=== PATIENT | male | born 1985 | race Caucasian/White ===

== ENCOUNTER 2019-04-22 20:18 | Emergency (ER) | payer OTHER ==
[~2019-04-22] VITALS: Ht 177.8 cm; Wt 79.5 kg
[2019-04-22 20:39] VITALS: BP 164/84
[2019-04-22] MEDS ORDERED: IV NORMAL SALINE 1,000ML 1,000 ML IV ONE (21:00)
--- NOTE | 2019-04-22 21:15 | PHYS DOC ---
Past History Past Medical History: No Pertinent History Alcohol Use: None Adult General Chief Complaint Chief Complaint: COUGH HPI HPI 33-year-old male presents with his 12-year-old daughter. They both present with following symptoms: cough, shortness of breath, and recent travel history. The patient came back from [facility] on April 01. He was at the [employer] tourist facility with multiple international people including people from [place]. He has not been notified of any known sick person as result of going to that facility. The patient's dry cough started about 2 weeks ago. It is been getting worse the last 3-4 days. He does not have a thermometer at home and has not measured a fever. He came in today because the cough seems to be getting worse and he is more fatigued with exertion. Review of Systems Review of Systems Constitutional: Denies fever or chills [] Eyes: Denies change in visual acuity, redness, or eye pain [] HENT: Denies nasal congestion or sore throat [] Respiratory: Cough with shortness of breath [] Cardiovascular: No additional information not addressed in HPI [] GI: Denies abdominal pain, nausea, vomiting, bloody stools or diarrhea [] : Denies dysuria or hematuria [] Musculoskeletal: Denies back pain or joint pain [] Integument: Denies rash or skin lesions [] Neurologic: Denies headache, focal weakness or sensory changes [] Endocrine: Denies polyuria or polydipsia [] All other systems were reviewed and found to be within normal limits, except as documented in this note. Current Medications Current Medications Current Medications Medications (Trade) Dose Ordered Sig/Ronaldo Start Time Stop Time Status Last Admin Dose Admin Sodium Chloride 1,000 ml @ 1,000 mls/hr 1X ONCE 04/22/19 21:00 04/22/19 21:59 04/22/19 21:00 1,000 MLS/HR Allergies Allergies Allergies Coded Allergies Type Severity Reaction Last Updated Verified meperidine Allergy Intermediate 04/22/19 Yes Physical Exam Physical Exam Constitutional: Well developed, well nourished, no acute distress, non-toxic appearance. [] HENT: Normocephalic, atraumatic, bilateral external ears normal, oropharynx moist, no oral exudates, nose normal. [] Eyes: PERRLA, EOMI, conjunctiva normal, no discharge. [] Neck: Normal range of motion, no tenderness, supple, no stridor. [] Cardiovascular: Heart rate regular rhythm, no murmur [] Lungs & Thorax: Bilateral breath sounds clear to auscultation [] Abdomen: Bowel sounds normal, soft, no tenderness, no masses, no pulsatile masses. [] Skin: Warm, dry, no erythema, no rash. [] Back: No tenderness, no CVA tenderness. [] Extremities: No tenderness, no cyanosis, no clubbing, ROM intact, no edema. [] Neurologic: Alert and oriented X 3, normal motor function, normal sensory function, no focal deficits noted. [] Psychologic: Affect normal, judgement normal, mood normal. [] Current Patient Data Vital Signs Vital Signs Date Time Temp Pulse Resp B/P (MAP) Pulse Ox O2 Delivery O2 Flow Rate FiO2 04/22/19 20:39 98.7 114 18 164/84 (110) 99 Room Air EKG EKG [] Radiology/Procedures Radiology/Procedures [] Impressions: Examination: CHEST AP ONLY History: Shortness of breath Comparison: None. Findings: AP portable upright frontal view of the chest was obtained. The cardiomediastinal silhouette is normal. Lungs are clear. There is no pneumothorax. No pleural effusion is appreciated. No acute bone abnormality. IMPRESSION: No acute cardiopulmonary process. Electronically signed by: Rashid Jerome MD (04/22/2019 9:36 PM) [facility] DICTATED AND SIGNED BY: RASHID JEROME MD DATE: 04/22/192135 CC: MARK PONCE DO; PCP,NO ~ Course & Med Decision Making Course & Med Decision Making Pertinent Labs and Imaging studies reviewed. (See chart for details) The patient's labs are unremarkable. His influenza was negative. His chest x-ray is negative for acute findings. I did confer with the [place] Department of health to make sure that this patient did not meet criteria for COVID 19 testing and he does not. This is likely another viral URI with cough. I've advised supportive care. The patient is stable for discharge at this time. [] Dragon Disclaimer Dragon Disclaimer This electronic medical record was generated, in whole or in part, using a voice recognition dictation system. Departure Departure: Impression: Primary Impression: Viral URI with cough Disposition: HOME, SELF-CARE Condition: STABLE Referrals: PCPMIAH (PCP) Patient Instructions: Upper Respiratory Infection, Adult, [id number] MARK PONCE DO Apr 22, 2019 21:15
--- NOTE | 2019-04-22 21:39 | RAD ---
Examination: CHEST AP ONLY History: Shortness of breath Comparison: None. Findings: AP portable upright frontal view of the chest was obtained. The cardiomediastinal silhouette is normal. Lungs are clear. There is no pneumothorax. No pleural effusion is appreciated. No acute bone abnormality. IMPRESSION: No acute cardiopulmonary process. Electronically signed by: Rashid Saucedo MD (04/22/2019 9:36 PM) [facility]
[2019-04-22 21:47] LABS: BASO # 0.1 x10^3/uL (0.0-0.2); BASO % 1 % (0-3); EOS # 0.1 x10^3/uL (0.0-0.7); EOS % 2 % (0-3); HEMATOCRIT 45.5 % (39.0-53.0); HEMOGLOBIN 15.6 g/dL (13.0-17.5); LYMPH # 2.6 x10^3/uL (1.0-4.8); LYMPH % 38 % (24-48); MEAN CORPUSCULAR HEMOGLOBIN 30 pg (25-35); MEAN CORPUSCULAR HGB CONC 34 g/dL (31-37); MEAN CORPUSCULAR VOLUME 88 fL (79-100); MONO # 0.6 x10^3/uL (0.0-1.1); MONO % 9 % (0-9); NEUT # 3.5 x10^3uL (1.8-7.7); NEUT % 51 % (31-73); PLATELET COUNT 217 x10^3/uL (140-400); RED BLOOD COUNT 5.16 x10^6/uL (4.30-5.70); RED CELL DISTRIBUTION WIDTH 13.4 % (11.5-14.5); WHITE BLOOD COUNT 6.9 x10^3/uL (4.0-11.0)
[2019-04-22 21:48] LABS: INFLUENZA A PATIENT NEGATIVE (NEGATIVE); INFLUENZA B PATIENT NEGATIVE (NEGATIVE)
[2019-04-22 21:56] LABS: CALCIUM 8.5 mg/dL (8.5-10.1); CREATININE 1.1 mg/dL (0.7-1.3); GFR 76.2; POTASSIUM 4.1 mmol/L (3.5-5.1)
[2019-04-22 22:02] LABS: ALBUMIN/GLOBULIN RATIO 1.2 (1.0-1.7); TOTAL BILIRUBIN 0.3 mg/dL (0.2-1.0); TOTAL PROTEIN 7.3 g/dL (6.4-8.2)
== END 2019-04-22 22:34 | disposition home or self-care (01) ==
LOC: ER 20:18
DX: J06.9 Acute upper respiratory infection, unspecified (principal); B97.89 Other viral agents as the cause of diseases classified elsewhere; Z88.8 Allergy status to other drugs, medicaments and biological substances
CPT/HCPCS: 36415; 71045; 80053; 85025; 87804; 99284-25; J7030

== ENCOUNTER 2019-07-12 13:12 | Emergency (ER) | payer OTHER ==
[~2019-07-12] VITALS: Ht 177.8 cm; Wt 100.0 kg
[2019-07-12 13:17] VITALS: BP 137/77
[2019-07-12] MEDS: IOHEXOL 300 MG/ML 75 ML VIAL. IV ONE (14:06)
[2019-07-12 14:15] LABS: BASO % 1 % (0-3); EOS % 0 % (0-3); HEMATOCRIT 42.6 % (39.0-53.0); HEMOGLOBIN 14.8 g/dL (13.0-17.5); LYMPH % 13 % (24-48); MEAN CORPUSCULAR HEMOGLOBIN 30 pg (25-35); MEAN CORPUSCULAR HGB CONC 35 g/dL (31-37); MEAN CORPUSCULAR VOLUME 87 fL (79-100); MONO # 0.2 x10^3/uL (0.0-1.1); MONO % 2 % (0-9); NEUT # 6.5 x10^3uL (1.8-7.7); NEUT % 85 % (31-73); PLATELET COUNT 212 x10^3/uL (140-400); WHITE BLOOD COUNT 7.7 x10^3/uL (4.0-11.0)
[2019-07-12 14:25] LABS: CALCIUM 8.9 mg/dL (8.5-10.1); CREATININE 1.3 mg/dL (0.7-1.3); GFR 62.5; POTASSIUM 4.3 mmol/L (3.5-5.1)
--- NOTE | 2019-07-12 14:30 | RAD ---
CT neck with contrast Contrast: 75 mL Omnipaque 300 intravenous contrast. HISTORY: Right sided neck pain, swelling. FINDINGS: There is a right level 2/3 jugular chain heterogeneous enhancing mass most likely a pathologic lymph node measures 3.5 x 2.7 cm. There may be mild thickening of the palatine tonsils although asymmetrically so on the right no discrete enhancing lesion or mass lesion identified of the nasopharynx, oral cavity or larynx. Thyroid gland is unremarkable. Vessels are unremarkable. Lung apices are unremarkable. Cervical disc osteophyte and uncovertebral spurs with spinal canal and neural foraminal stenoses at C5-C6 and C6-C7. Salivary glands, usability engineer spaces, parapharyngeal spaces, sublingual space, submandibular space unremarkable. IMPRESSION: Right jugular chain 3.5 x 2.7 cm heterogeneous enhancing mass most likely a pathologic lymph node. There is mild asymmetric right greater than left palatine tonsillar thickening which may be tonsillitis although changes of a right tonsillar malignancy are of concern given the markedly enlarged lymph node. Exposure: One or more of the following individualized dose reduction techniques were utilized for this examination: 1. Automated exposure control 2. Adjustment of the mA and/or kV according to patient size 3. Use of iterative reconstruction technique Electronically signed by: Jeb Jacobson MD (07/12/2019 2:27 PM) [id number]
[2019-07-12 14:31] LABS: ALBUMIN 3.9 g/dL (3.4-5.0); ALBUMIN/GLOBULIN RATIO 1.1 (1.0-1.7); TOTAL BILIRUBIN 0.5 mg/dL (0.2-1.0); TOTAL PROTEIN 7.4 g/dL (6.4-8.2)
--- NOTE | 2019-07-12 15:13 | PHYS DOC ---
Past History Past Medical History: No Pertinent History Alcohol Use: None General Adult EDM: Chief Complaint: SORE THROAT HPI: HPI: Patient is a 34-year-old male who presented to ER today for evaluation of sore throat and right-sided neck pain that he has been dealing with for about 2 weeks. Any cough or fever. Patient went to the urgent care, they diagnosed him with viral tonsillitis, he was put on Rocephin injection on that basis, he was brought in amoxicillin 3 times a day for 10 days, and prednisone. Patient has been on the antibiotic since Tuesday. Patient said they called him today and stated that his strep screen was negative, they also cultured his throat sample and it came back as viral pharyngitis. Patient had no trouble swallowing. P atient denies any cough or fever, no chest pain, no abdominal pain, no recent exposure to anybody who tested positive for the COVID-19. Review of Systems: Review of Systems: Constitutional: Denies fever or chills Eyes: Denies change in visual acuity HENT: Denies nasal congestion, positive for sorethroat, right side neck swelling Respiratory: Denies cough or shortness of breath Cardiovascular: Denies chest pain or edema GI: Denies abdominal pain, nausea, vomiting, bloody stools or diarrhea : Denies dysuria Musculoskeletal: Denies back pain or joint pain Integument: Denies rash Neurologic: Denies headache, focal weakness or sensory changes Endocrine: Denies polyuria or polydipsia Lymphatic: Denies swollen glands Psychiatric: Denies depression or anxiety Heart Score: Risk Factors: Risk Factors: DM, Current or recent (<one month) smoker, HTN, HLP, family history of CAD, obesity. Risk Scores: Score 0 - 3: 2.5% MACE over next 6 weeks - Discharge Home Score 4 - 6: 20.3% MACE over next 6 weeks - Admit for Clinical Observation Score 7 - 10: 72.7% MACE over next 6 weeks - Early Invasive Strategies Current Medications: Current Meds: Current Medications Medications (Trade) Dose Ordered Sig/Ronaldo Start Time Stop Time Status Last Admin Dose Admin Iohexol (Omnipaque 300 Mg/ml) 75 ml 1X ONCE 07/12/19 14:00 07/12/19 14:01 DC 07/12/19 14:06 75 ML Methylprednisolone Sodium Succinate (SOLU-Medrol 125MG VIAL) 125 mg 1X ONCE 07/12/19 15:10 07/12/19 15:11 Allergies: Allergies: Allergies Coded Allergies Type Severity Reaction Last Updated Verified meperidine Allergy Intermediate 04/22/19 Yes Physical Exam: PE: Constitutional: Well developed, well nourished, no acute distress, non-toxic appearance. [] HENT: Normocephalic, atraumatic, bilateral external ears normal, oral pharyngeal area is erythema, n no oral exudates, nose normal. [] Eyes: PERRLA, EOMI, conjunctiva normal, no discharge. [] Neck: Normal range of motion, supple, no stridor. There is a palpable tender mass on right side neck, trachea is midline. Cardiovascular:Heart rate regular rhythm, no murmur [] Lungs & Thorax: Bilateral breath sounds clear to auscultation [] Abdomen: Bowel sounds normal, soft, no tenderness, no masses, no pulsatile masses. [] Skin: Warm, dry, no erythema, no rash. [] Back: No tenderness, no CVA tenderness. [] Extremities: No tenderness, no cyanosis, no clubbing, ROM intact, no edema. [] Neurologic: Alert and oriented X 3, normal motor function, normal sensory function, no focal deficits noted. [] Psychologic: Affect normal, judgement normal, mood normal. [] Current Patient Data: Labs: Laboratory Tests Test 07/12/19 14:00 White Blood Count 7.7 x10^3/uL (4.0-11.0) Red Blood Count 4.90 x10^6/uL (4.30-5.70) Hemoglobin 14.8 g/dL (13.0-17.5) Hematocrit 42.6 % (39.0-53.0) Mean Corpuscular Volume 87 fL (79-100) Mean Corpuscular Hemoglobin 30 pg (25-35) Mean Corpuscular Hemoglobin Concent 35 g/dL (31-37) Red Cell Distribution Width 13.0 % (11.5-14.5) Platelet Count 212 x10^3/uL (140-400) Neutrophils (%) (Auto) 85 % (31-73) H Lymphocytes (%) (Auto) 13 % (24-48) L Monocytes (%) (Auto) 2 % (0-9) Eosinophils (%) (Auto) 0 % (0-3) Basophils (%) (Auto) 1 % (0-3) Neutrophils # (Auto) 6.5 x10^3uL (1.8-7.7) Lymphocytes # (Auto) 1.0 x10^3/uL (1.0-4.8) Monocytes # (Auto) 0.2 x10^3/uL (0.0-1.1) Eosinophils # (Auto) 0.0 x10^3/uL (0.0-0.7) Basophils # (Auto) 0.0 x10^3/uL (0.0-0.2) Sodium Level 139 mmol/L (136-145) Potassium Level 4.3 mmol/L (3.5-5.1) Chloride Level 104 mmol/L (98-107) Carbon Dioxide Level 29 mmol/L (21-32) Anion Gap 6 (6-14) Blood Urea Nitrogen 13 mg/dL (8-26) Creatinine 1.3 mg/dL (0.7-1.3) Estimated GFR (Cockcroft-Gault) 62.5 BUN/Creatinine Ratio 10 (6-20) Glucose Level 112 mg/dL (70-99) H Calcium Level 8.9 mg/dL (8.5-10.1) Total Bilirubin 0.5 mg/dL (0.2-1.0) Aspartate Amino Transferase (AST) 22 U/L (15-37) Alanine Aminotransferase (ALT) 32 U/L (16-63) Alkaline Phosphatase 38 U/L (46-116) L Total Protein 7.4 g/dL (6.4-8.2) Albumin 3.9 g/dL (3.4-5.0) Albumin/Globulin Ratio 1.1 (1.0-1.7) Vital Signs: Vital Signs Date Time Temp Pulse Resp B/P (MAP) Pulse Ox O2 Delivery O2 Flow Rate FiO2 07/12/19 13:17 97.0 88 16 137/77 (97) 96 Room Air EKG: EKG: [] Radiology/Procedures: Radiology/Procedures: [][address] [address] IMAGING REPORT Signed PATIENT: TERI CABRALES ACCOUNT: [id number] : 1985 LOCATION: ER AGE: 34 SEX: M EXAM STATUS: REG ER ORD. PHYSICIAN: VIVIANE BECKER DO REASON: RIGHT SIDE NECK SWELLING AND PAIN FOR TWO WEEKS PROCEDURE: CT SOFT TISSUE NECK W/CONTRAST CT neck with contrast Contrast: 75 mL Omnipaque 300 intravenous contrast. HISTORY: Right sided neck pain, swelling. FINDINGS: There is a right level 2/3 jugular chain heterogeneous enhancing mass most likely a pathologic lymph node measures 3.5 x 2.7 cm. There may be mild thickening of the palatine tonsils although asymmetrically so on the right no discrete enhancing lesion or mass lesion identified of the nasopharynx, oral cavity or larynx. Thyroid gland is unremarkable. Vessels are unremarkable. Lung apices are unremarkable. Cervical disc osteophyte and uncovertebral spurs with spinal canal and neural foraminal stenoses at C5-C6 and C6-C7. Salivary glands, quality technician spaces, parapharyngeal spaces, sublingual space, submandibular space unremarkable. IMPRESSION: Right jugular chain 3.5 x 2.7 cm heterogeneous enhancing mass most likely a pathologic lymph node. There is mild asymmetric right greater than left palatine tonsillar thickening which may be tonsillitis although changes of a right tonsillar malignancy are of concern given the markedly enlarged lymph node. Exposure: One or more of the following individualized dose reduction techniques were utilized for this examination: 1. Automated exposure control 2. Adjustment of the mA and/or kV according to patient size 3. Use of iterative reconstruction technique Electronically signed by: Jesus Jacobson MD (07/12/2019 2:27 PM) [id number] DICTATED AND SIGNED BY: JESUS JACOBSON MD DATE: 07/12/19 1427 CC: PCP,UNKNOWN; VIVIANE BECKER DO ~ Course & Med Decision Making: Course & Med Decision Making Pertinent Labs and Imaging studies reviewed. (See chart for details) Patient is a 34-year-old male who was evaluated in the ER due to sore throat, sized right-sided neck pain. CT scan of head neck did not show peritonsillar abscess, showed he had a swollen lymph node on the right side. Patient will need to follow-up with ENT doctor for further evaluation and treatment. Patient was given the phone number of the ENT doctor Dr. Ciera Adamson so he can call for follow-up. Nazia Disclaimer: Dragn[place] Disclaimer: This electronic medical record was generated, in whole or in part, using a voice recognition dictation system. Departure Departure: Impression: Primary Impression: Lymphadenopathy of right cervical region Disposition: HOME/RESIDENCE PRIOR TO ADM Condition: STABLE Referrals: PCP,UNKNOWN (PCP) PLEASE THIS ENT DOCTOR, DR. CIERA ADAMSON AT [phone] for follow up next week for futher evaluation and treatment. Patient Instructions: Sore Throat Additional Instructions: Thank you for visiting our Emergency Department. We appreciate you trusting us with your care. If any additional problems come up don't hesitate to return to visit us. Please follow up with your primary care provider so they can plan additional care if needed and know about the problem that you had. If symptoms worsen come back to the Emergency Department. Any concerning symptoms that start such as chest pain, shortness of air, weakness or numbness on one side of the body, running high fevers or any other concerning symptoms return to the ER. VIVIANE BECKER DO Jul 12, 2019 15:13
[2019-07-12] MEDS: methylPREDNISolone SOD SUCC PF 125 MG/2 ML VIAL. IV ONE (15:17)
== END 2019-07-12 15:26 | disposition home or self-care (01) ==
LOC: ER 13:12
DX: R59.0 Localized enlarged lymph nodes (principal); J02.9 Acute pharyngitis, unspecified; Z88.8 Allergy status to other drugs, medicaments and biological substances
CPT/HCPCS: 36415; 70491; 80053; 85025; 96374; 99285; J2930; Q9967